=== PATIENT | male | born 1955 | race Caucasian/White ===

== ENCOUNTER 2022-02-21 10:21 | Outpatient (CLI) | payer BC, SELFPAY ==
[2022-02-21 10:49] LABS: Basophils Absolute Auto 0.03 K/uL (0.00-0.30); Basophils Percent Auto 0.4 % (0.0-3.0); Eosinophils Absolute Auto 0.15 K/uL (0.00-0.50); Eosinophils Percent Auto 1.8 % (0.0-7.0); Hematocrit 44.8 % (37.0-53.0); Hemoglobin* 15.6 gm/dL (13.5-17.5); Lymphocytes Absolute Auto 1.97 K/uL (0.90-2.90); Mean Corpuscular HGB Conc 35 gm/dL (32-36); Mean Corpuscular Hemoglobin 31 pg (26-34); Mean Corpuscular Volume 89 fL (80-100); Monocytes Absolute Auto 0.69 K/UL (0.00-0.90); Monocytes Percent Auto 8.4 % (0.0-11.0); Neutrophils Absolute Auto 5.38 K/uL (1.7-7.0); Neutrophils Percent Auto 65.4 % (42.0-72.0); Platelet Count* 253 K/uL (140-440); Red Blood Count 5.03 m/uL (4.30-5.90); White Blood Count* 8.22 K/uL (4.50-11.00)
[2022-02-21 10:52] LABS: Slide Review Reflex No
[2022-02-21 13:30] LABS: Albumin* 4.5 g/dL (3.3-5.0); Chloride* 108 mmol/L (96-114)
[2022-02-21 13:31] LABS: Sodium* 139 mmol/L (135-149)
[2022-02-21 13:33] LABS: Cholesterol* 198 mg/dL (90-199)
[2022-02-21 13:34] LABS: Alanine Aminotransferase* 32 U/L (4-50); Alkaline Phosphatase* 119 U/L (40-150); Aspartate Amino Transferase* 37 U/L (12-35); Bilirubin Total* 0.9 mg/dL (0.1-1.5); Blood Urea Nitrogen* 19 mg/dL (7-30); Carbon Dioxide* 23 mmol/L (20-32); Creatinine* 0.8 mg/dL (0.5-1.5); Estimated Glomerular Filt Rate 96 ml/min; Glucose* 117 mg/dL (60-115); Triglycerides* 223 mg/dL (40-149)
[2022-02-21 13:35] LABS: Calcium* 9.4 mg/dL (8.4-10.6); HDL Cholesterol* 60 mg/dL (>=40); LDL Cholesterol Calculated 93 mg/dL (<100)
[2022-02-21 14:05] LABS: PSA Screen* 2.88 ng/mL (0.10-4.00)
== END 2022-02-21 10:22 | disposition home or self-care (01) ==
PROVIDERS: PCP Family Medicine; Visit Provider Family Medicine
DX: Z00.00 Encounter for general adult medical examination without abnormal findings (principal); E78.5 Hyperlipidemia, unspecified; K50.90 Crohn's disease, unspecified, without complications
CPT/HCPCS: 80053; 80061; 84153; 85025; 86480

== ENCOUNTER 2023-02-10 10:34 | Outpatient (CLI) | payer BC, SELFPAY | END 2023-02-10 10:35 | disposition home or self-care (01) | PROVIDERS: PCP Family Medicine; Visit Provider Family Medicine | DX: Z00.00 Encounter for general adult medical examination without abnormal findings (principal); I10 Essential (primary) hypertension; E78.5 Hyperlipidemia, unspecified; Z11.59 Encounter for screening for other viral diseases; Z13.6 Encounter for screening for cardiovascular disorders; Z12.5 Encounter for screening for malignant neoplasm of prostate | CPT/HCPCS: 80053; 80061; 84153; 86803 ==

== ENCOUNTER 2023-02-25 12:49 | Outpatient (CLI) | payer BC, SELFPAY ==
--- NOTE | 2023-02-25 13:00 | CRLHL7_ITS ---
For Patients: As a result of the Cures Act, medical imaging exams and procedure reports are released immediately into your electronic medical record. You may view this report before your referring provider. If you have questions, please contact your health care provider. Examination: US abdominal aorta Indication: Abdominal aortic aneurysm screening. Technique: Christian scale and color Doppler images of the aorta and common iliac arteries are obtained. Comparison: None Findings: Proximal aorta: 2.6 x 2.6 cm Mid aorta: 2.6 x 2.5 cm Distal aorta: 2.1 x 2.0 cm Right common iliac artery: 1.5 x 1.5 cm Left common iliac artery: 1.3 x 1.5 cm Impression: No abdominal aortic aneurysm. Dictated by Nadir Truong MD @ 02/25/2023 1:24:26 PM (Electronically Signed)
== END 2023-02-25 12:50 | disposition home or self-care (01) ==
PROVIDERS: PCP Family Medicine; Visit Provider Family Medicine
DX: Z13.6 Encounter for screening for cardiovascular disorders (principal); Z87.891 Personal history of nicotine dependence
CPT/HCPCS: 76706

== ENCOUNTER 2024-04-27 11:38 | Outpatient (CLI) | payer BC, SELFPAY | END 2024-04-27 11:39 | disposition home or self-care (01) | LOC: NFLDREF 04-28 14:13 | PROVIDERS: PCP Family Medicine; Referring Provider Family Medicine; Visit Provider Family Medicine | DX: E78.5 Hyperlipidemia, unspecified (principal); I10 Essential (primary) hypertension; K21.9 Gastro-esophageal reflux disease without esophagitis; K76.0 Fatty (change of) liver, not elsewhere classified; K50.90 Crohn's disease, unspecified, without complications; R00.0 Tachycardia, unspecified; Z12.5 Encounter for screening for malignant neoplasm of prostate | CPT/HCPCS: 80053; 80061; 82043; 82570; G0103 ==

== ENCOUNTER 2025-05-24 11:06 | Outpatient (CLI) | payer BC, SELFPAY | END 2025-05-24 11:07 | disposition home or self-care (01) | LOC: NFLDREF 05-26 10:37 | PROVIDERS: PCP Family Medicine; Referring Provider Family Medicine; Visit Provider Family Medicine | DX: I10 Essential (primary) hypertension (principal); E78.5 Hyperlipidemia, unspecified; Z12.5 Encounter for screening for malignant neoplasm of prostate | CPT/HCPCS: 80053; 80061; 82043; 82570; G0103 ==